=== PATIENT | female | born 1990 | race Caucasian/White ===

== ENCOUNTER → 2017-02-07 12:51 | Observation (INO) ==
[2017-02-07 12:04] LABS: Bilirubin,Urine Negative (Negative); Blood,Urine Negative (Negative); Clarity,Urine Cloudy (Clear); Color,Urine Yellow (Yellow); Glucose,Urine (UA) Normal (Normal); Ketones,Urine Negative (Negative); Leukocyte Esterase,Urine Moderate (Negative); Nitrite,Urine Positive (Negative); Protein,Urine Trace mg/dL (Neg-Trace); Specific Gravity,Urine 1.026 (1.010-1.025); Urobilinogen,Urine Normal (Normal)
[2017-02-07 12:07] LABS: Bacteria,Urine Many per hpf (None-Few); Hyaline Casts,Urine Moderate per lpf (None-Few); Squamous Epithelial Cell,Urine Many per lpf (None-Few); WBC,Urine 30-50 per hpf (0-3)
[2017-02-07 12:10] LABS: Amphetamine Screen,Urine Negative ng/mL (Cutoff=1000); Barbiturate Screen,Urine Negative ng/mL (Cutoff=200); Benzodiazepines Screen,Urine Negative ng/mL (Cutoff=200); Cannabinoid Screen,Urine Negative ng/mL (Cutoff = 50); Cocaine Screen,Urine Negative ng/mL (Cutoff= 300); Opiate Screen,Urine Negative ng/mL (Cutoff=300); Phencyclidine Screen,Urine Negative ng/mL (Cutoff=25)
[2017-02-07 12:19] LABS: RBC,Urine 0-3 per hpf (0-3)
--- NOTE | 2017-02-07 12:44 | OB/GYN Progress Note ---
Date of Encounter: 02/07/17 Time of Encounter: 12:16 - Assessment and Plan (1) UTI (urinary tract infection) Current Visit: Yes Status: Acute UA shows positive nitrites and leuk esterase Tx with Macrobid Qualifiers: Urinary tract infection type: acute cystitis Hematuria presence: without hematuria Qualified Code(s): N30.00 - Acute cystitis without hematuria (2) Vaginal discharge Current Visit: Yes Status: Acute Vaginosis panel pending (3) 29 weeks gestation of Current Visit: Yes Status: Acute Subjective - Subjective Principal diagnosis: Cramping and vaginal bleeding Interval history: Patient is a 26 year old at 29w6d gestation who follows with [facility], presenting to L&D with lower abdominal cramping and vaginal bleeding. She reports that her bleeding is a small amount of blood on the toilet paper that began around 5PM last night. Also reports some green vaginal discharge for the past week. She reports that she is feeling movement. Denies contractions or loss of fluid. She denies any complications with this . She denies fevers, chills, headaches, changes in vision, chest pain, dyspnea, N/V, dysuria , or lower extremity edema. The patient reports no known drug allergies and no other medical conditions. 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
[2017-02-07 13:25] LABS: Candida DNA Not Detected (Not Detect); Gardnerella DNA Not Detected (Not Detect); Trichomonas DNA Not Detected (Not Detect)
== END | disposition home or self-care (01) ==
LOC: 1NENULAB

== ENCOUNTER → 2017-03-28 21:09 | Observation (INO) ==
[2017-03-28 20:24] LABS: Bilirubin,Urine Negative (Negative); Blood,Urine Large (Negative); Clarity,Urine Cloudy (Clear); Color,Urine Yellow (Yellow); Glucose,Urine (UA) Normal (Normal); Ketones,Urine Negative (Negative); Leukocyte Esterase,Urine Small (Negative); Nitrite,Urine Negative (Negative); Protein,Urine 30 mg/dL (Neg-Trace); Urobilinogen,Urine Normal (Normal)
[2017-03-28 20:29] LABS: Hyaline Casts,Urine None Seen per lpf (None-Few); RBC,Urine TNTC per hpf (0-3); Squamous Epithelial Cell,Urine Many per lpf (None-Few)
[2017-03-28 20:46] LABS: Bacteria,Urine Moderate per hpf (None-Few); Mucus,Urine Few (Few)
--- NOTE | 2017-03-28 21:01 | OB/GYN Progress Note ---
Date of Encounter: 03/28/17 Time of Encounter: 20:59 - Assessment and Plan (1) Non-stress test reactive Current Visit: Yes Status: Acute Reactive NST; Category I tracing Discharge home with labor precautions and follow up with routine care.. (2) 37 weeks gestation of Current Visit: Yes Status: Acute Subjective - Subjective Principal diagnosis: Contractions Interval history: Patient seen by Nursing staff. Triaged for labor. States will be delivering with us; gets care through [facility]. Records requested. Antepartum ROS: movement normal, contractions, no loss of fluid, no vaginal bleeding Objective - Vital Signs Vital Signs: Intake and Output 03/28/17 03/28/17 03/28/17 07:59 15:59 23:59 Other: Weight 88 kg Patient Weight 03/28/17 23:59 Weight 88 kg - Exam FHR: auscultation normal, category 1 - Labs Labs: Abnormal lab results Urine Clarity Cloudy (Clear) A 03/28/17 20:08 Urine Protein 30 mg/dL (Neg-Trace) H 03/28/17 20:08 Urine Blood Large (Negative) H 03/28/17 20:08 Ur Leukocyte Esterase Small (Negative) H 03/28/17 20:08 Urine Microscopic RBC TNTC per hpf (0-3) H 03/28/17 20:08 Urine Microscopic WBC 5-15 per hpf (0-3) H 03/28/17 20:08 Ur Squamous Epith Cells Many per lpf (None-Few) H 03/28/17 20:08 Urine Bacteria Moderate per hpf (None-Few) H 03/28/17 20:08
[2017-03-29 11:07] LABS: Amphetamine Screen,Urine Negative ng/mL (Cutoff=1000); Barbiturate Screen,Urine Negative ng/mL (Cutoff=200); Benzodiazepines Screen,Urine Negative ng/mL (Cutoff=200); Cannabinoid Screen,Urine Negative ng/mL (Cutoff = 50); Cocaine Screen,Urine Negative ng/mL (Cutoff= 300); Opiate Screen,Urine Negative ng/mL (Cutoff=300); Phencyclidine Screen,Urine Negative ng/mL (Cutoff=25)
== END | disposition home or self-care (01) ==
LOC: 1NENULAB
PROVIDERS: ADMIT Advanced Practice Midwife; ATTEND Advanced Practice Midwife